=== PATIENT | male | born 1935 | race Caucasian/White ===

== ENCOUNTER → 2017-09-18 | Outpatient (CLI) | payer MEDICARE ==
[~2017-09-18] MED LIST: CIPRO 500MG TA500 MG PO; CLARITIN 1010 MG/TAB PO; GLUCOPHAGE500 MG/TAB PO; HYGROTON25 MG PO; LOPRESSOR 225 MG/TAB PO; MAGNESIUM500 MG PO; NORCO 325 MG-51 TAB PO; NORVASC 5MG5 MG/TAB PO; PYRIDIUM 100MG100 MG PO; VITAMIN D 1001000 IU PO; VITAMIN D5000 IU PO; ZESTRIL 20MG TA20 MG PO; ZYLOPRIM 100MG100 MG PO
== END ==
LOC: COL.RAD 08-19 10:30
DX: N27.1 Small kidney, bilateral (principal); N28.89 Other specified disorders of kidney and ureter; Z85.51 Personal history of malignant neoplasm of bladder; Z96.0 Presence of urogenital implants

== ENCOUNTER 2022-11-23 07:45 | Emergency (ER) | payer MEDICARE ==
[~2022-11-23] VITALS: Ht 177.8 cm; Wt 79.5 kg
[2022-11-23 08:01] VITALS: TEMP 98.4
[2022-11-23 08:35] LABS: BASO % 0.2 % (0.0-2.0); EOS # 0.1 K/mm3 (0.0-0.7); EOS % 0.8 % (0.0-4.0); GRAN % 77.3 % (42.2-75.2); HEMATOCRIT 43.7 % (42.0-52.0); HEMOGLOBIN 14.6 g/dl (13.5-18.0); LYMPH # 1.4 K/mm3 (1.2-3.4); LYMPH % 12.3 % (20.0-51.0); MEAN CELL VOLUME 91 fl (80.0-100.0); MEAN CORPUSCULAR HEMOGLOBIN 30 pg (27-31); MEAN CORPUSCULAR HGB CONC 33 g/dl (33.0-37.0); MEAN PLATELET VOLUME 10.7 fl (7.4-10.4); MONO % 8.9 % (1.7-9.3); PLATELET COUNT 143 K/mm3 (130-400); RED BLOOD COUNT 4.82 M/mm3 (4.20-5.60); REDCELL DISTRIBUTION WIDTH-CV 12.5 % (11.5-14.5)
[2022-11-23 08:54] LABS: ALBUMIN 3.3 gm/dL (3.4-4.8); BILIRUBIN,TOTAL 0.7 mg/dL (0.2-1.2); CALCIUM 8.7 mg/dL (8.4-10.2); CREATININE, serum 6.41 mg/dL (0.72-1.25); TOTAL PROTEIN 6.7 gm/dL (6.2-8.1)
[2022-11-23 11:05] VITALS: BP 119/84; PULSE 102
== END 2022-11-23 11:05 | disposition home or self-care (01) ==
LOC: COL.ER 07:45
PROVIDERS: Personal Emergency Response Attendant
DX: U07.1 COVID-19 (principal); K59.00 Constipation, unspecified; R79.89 Other specified abnormal findings of blood chemistry

== ENCOUNTER 2024-01-29 22:44 | Inpatient (IN) | payer MEDICARE ==
[~2024-01-29] VITALS: Ht 177.8 cm; Wt 84.8 kg
[2024-01-29 10:59] VITALS: BP 148/88; PULSE 108; TEMP 98.1
--- NOTE | 2024-01-29 10:59 | NUR ---
PATIENT ADMITTED TO ROOM 355 BROUGHT IN BY [facility]. TELE PLACED AND 2L O2 NC CONTINUED. PATIENT AXO X4, INDEPENDENT AND DENIES CHEST PAIN. BEDSIDE TO STAY NIGHT. VS ARE WNL WITH THE EXCEPTION OF SINUS TACHY 110 BPM. ASSESSMENT, INTAKE AND MED REC COMPLETE. PATIENT ORIENTED TO ROOM. GIVEN SANDWHICH BOX. DENIES ANY FURTHER NEEDS. CALL LIGHT WITHIN REACH.
[2024-01-29 21:00] VITALS: BP_SYST 148
[2024-01-29] MEDS ORDERED: LASIX 40MG TABL40 MG PO (23:21)
[2024-01-29] MEDS ORDERED: TAGAMET200 MG PO (23:23)
[2024-01-29] MEDS ORDERED: FLOMAX 0.40.4 MG/CAP PO (23:24)
[2024-01-29] MEDS ORDERED: LIPITOR 10MG10 MG PO (23:25)
[2024-01-29] MEDS ORDERED: OPTIVE SENSITI0.4 ML OP (23:26)
[2024-01-29 23:29] VITALS: BP 148/88; PULSE 108; TEMP 98.1
[2024-01-30] VITALS (11 sets, daily range): BP systolic 106–148; BP diastolic 66–84; PULSE 95–112; TEMP 97.5–98.2
[2024-01-30] MEDS ORDERED: Albuterol/Ipratropium 3 MG-0.5 MG/3 ML Neb Soln IH PRN (01:00)
[2024-01-30] MEDS ORDERED: Ondansetron 4 MG/2 ML VIAL IV PRN (01:00)
[2024-01-30] MEDS ORDERED: Furosemide 40 MG/4 ML VIAL IV SCH (01:00)
[2024-01-30 01:23] LABS: BASO % 0.2 % (0.0-2.0); EOS % 0.1 % (0.0-4.0); GRAN # 9.4 K/mm3 (1.4-6.5); GRAN % 80.4 % (42.2-75.2); HEMATOCRIT 43.1 % (42.0-52.0); HEMOGLOBIN 13.6 g/dl (13.5-18.0); LYMPH # 1.1 K/mm3 (1.2-3.4); LYMPH % 9.3 % (20.0-51.0); MEAN CELL VOLUME 94 fl (80.0-100.0); MEAN CORPUSCULAR HEMOGLOBIN 30 pg (27-31); MEAN CORPUSCULAR HGB CONC 32 g/dl (33.0-37.0); MEAN PLATELET VOLUME 10.5 fl (7.4-10.4); MONO # 1.1 K/mm3 (0.1-0.6); MONO % 9.2 % (1.7-9.3); PLATELET COUNT 267 K/mm3 (130-400); REDCELL DISTRIBUTION WIDTH-CV 13.6 % (11.5-14.5)
[2024-01-30 01:40] LABS: ALBUMIN 3.1 g/dL (3.4-4.8); BILIRUBIN,TOTAL 0.6 mg/dL (0.2-1.2); CALCIUM 9.5 mg/dL (8.4-10.2); CREATININE, serum 6.02 mg/dL (0.72-1.25); MAGNESIUM 2.1 mg/dL (1.6-2.6); POTASSIUM 4.8 mEq/L (3.5-4.5); TOTAL PROTEIN 6.6 g/dl (6.2-8.1)
[2024-01-30 05:09] LABS: URINE APPEARANCE CLEAR (CLEAR/HAZY); URINE BLOOD NEGATIVE (NEGATIVE); URINE COLOR YELLOW (YELLOW); URINE GLUCOSE 1+ (NEGATIVE); URINE KETONE NEGATIVE (NEGATIVE); URINE NITRATE NEGATIVE (NEGATIVE); URINE PROTEIN(semi-quant) 1+ (NEGATIVE)
[2024-01-30 06:36] LABS: COLLECTION METHOD CLEAN CATCH
[2024-01-30] MEDS ORDERED: Heparin 5,000 UNITS/ML 1 ML VIAL SQ SCH (08:00)
--- NOTE | 2024-01-30 08:39 | NUR ---
SW met with patient to complete intake. Patient provides he lives in [facility] with spouse Miladis Bird [phone]. Patient provides he is independent with ADL's, does not utilize DME, and does not utilize home health services at this time. PCP is Dr. Love, and pharmacy is [facility]. Patient provides that his DPOA/HC is spouse. Patient plans to return back to his home upon discharge. SW will continue to follow. Discharge plan: home with spouse
[2024-01-30] MEDS ORDERED: Sennosides/Docusate 8.6-50 MG TAB PO SCH (09:00)
[2024-01-30] MEDS ORDERED: Metoprolol Tartrate 25 MG TAB PO SCH (09:00)
[2024-01-30] MEDS ORDERED: Loratadine 10 MG TAB PO SCH (09:00)
[2024-01-30] MEDS ORDERED: Polyethylene Glycol 3350 17 GM PDS PO SCH (09:00)
[2024-01-30] MEDS ORDERED: Furosemide 100 MG/10 ML VIAL IV SCH (09:48)
[2024-01-30] MEDS ORDERED: Furosemide 100 MG in NS 100 ML IV SCH (10:30)
[2024-01-30] MEDS ORDERED: Furosemide 100 MG/10 ML VIAL IV ONE (10:30)
[2024-01-30] MEDS ORDERED: Furosemide 100 MG in NS 100 ML (AT SET RATE) IV SCH (10:45)
[2024-01-30] MEDS ORDERED: Acetaminophen 500 MG TAB PO PRN (16:45)
--- NOTE | 2024-01-30 19:11 | NUR ---
PATIENT RESTING SITTING UP IN BED WITH TV ON WITH FAMILY AT BEDSIDE WITH NO ACUTE DISTRESS NOTED. PATIENT ON 1 LITER OF OXYGEN VIA NC. LASIX DRIP INFUSING INTO LEFT FOREARM WITH NO COMPLICATIONS NOTED. TELEMETRY INTACT. PATIENT DENIES ANY NEEDS AT THIS TIME. PATIENT CARE ASSUMED FROM [facility]. BED IN LOW POSITION WITH WHEELS LOCKED WITH RAILS UP X2 AND CALL LIGHT WITHIN REACH.
[2024-01-30] MEDS ORDERED: Atorvastatin 10 MG TAB PO SCH (21:00)
--- NOTE | 2024-01-30 21:15 | NUR ---
PATIENT RESTING SITTING UP IN BED WITH TV ON WITH NO FAMILY PRESENT WITH NO ACUTE DISTRESS NOTED. PATIENT ON 1 LITER OF OXYGEN VIA NC. LASIX DRIP INFUSING INTO LEFT FOREARM WITH NO COMPLICATIONS NOTED. TELEMETRY INTACT. ASSESSMENT AND MEDICATION ADMINISTRATION COMPLETED AT THIS TIME. PATIENT TOLERATED WELL. PATIENT DENIES ANY NEEDS AT THIS TIME. BED IN LOW POSITION WITH WHEELS LOCKED WITH RAILS UP X2 AND CALL LIGHT WITHIN REACH.
[2024-01-31] VITALS (12 sets, daily range): BP systolic 112–159; BP diastolic 64–80; PULSE 79–99; TEMP 97.6–98.4
[2024-01-31 06:58] LABS: BASO % 0.3 % (0.0-2.0); EOS # 0.4 K/mm3 (0.0-0.7); EOS % 3.3 % (0.0-4.0); GRAN # 8.4 K/mm3 (1.4-6.5); GRAN % 75.2 % (42.2-75.2); HEMATOCRIT 43.1 % (42.0-52.0); HEMOGLOBIN 13.7 g/dl (13.5-18.0); LYMPH # 1.3 K/mm3 (1.2-3.4); LYMPH % 11.8 % (20.0-51.0); MEAN CELL VOLUME 95 fl (80.0-100.0); MEAN CORPUSCULAR HEMOGLOBIN 30 pg (27-31); MEAN CORPUSCULAR HGB CONC 32 g/dl (33.0-37.0); MEAN PLATELET VOLUME 10.5 fl (7.4-10.4); MONO % 8.6 % (1.7-9.3); PLATELET COUNT 270 K/mm3 (130-400); RED BLOOD COUNT 4.55 M/mm3 (4.20-5.60); REDCELL DISTRIBUTION WIDTH-CV 13.4 % (11.5-14.5)
--- NOTE | 2024-01-31 07:00 | NUR ---
PATINET ASLEEP, APPEARS TO BE RESTING COMFORTABLY IN BED. O2 ON AT 3LNC. PATIENT APPEARS TO BE IN NO ACUTE DISTRESS. CALL LIGHT WITHIN REACH. IV LASIX DRIP INFUSING ORDERED (SEE EMAR FOR DETAILS).
[2024-01-31 07:12] LABS: CALCIUM 9.6 mg/dL (8.4-10.2); CREATININE, serum 5.8 mg/dL (0.72-1.25); MAGNESIUM 2.1 mg/dL (1.6-2.6); POTASSIUM 5.4 mEq/L (3.5-4.5)
--- NOTE | 2024-01-31 11:00 | NUR ---
ROSIE DID WELL ON ROOM AIR, O2 SATURATION @ 92-93%. KEREN WAS ABLE TO WALK OUT INTO THE STEEL WITH THERAPY ON ROOM AIR, REQUIRED NO AD. PATIENT DENIES ANY CURRENT SOB. HE STATES HE FEELS ALOT BETTER THAN WHEN HE ARIVED.
--- NOTE | 2024-01-31 11:15 | NUR ---
PATIENT FOUND TO BE 89-90% ON ROOM AR DURING VITAL SIGN CHECKS. PATIENT PLACED BACK ON 1L AND IS NOW 97%ON 1LNC. PATIENT CALL LIGHT WITHIN REACH, HIS WIF EIS AT BEDSIDE.
--- NOTE | 2024-01-31 18:47 | NUR ---
PATIENT RESTING IN BED LYING ON RIGHT SIDE WITH TV OFF WITH NO FAMILY PRESENT WITH NO ACUTE DISTRESS NOTED. PATIENT ON ROOM AIR. LASIX DRIP INFUSING INTO LEFT FOREARM WITH NO COMPLICATIONS NOTED. PATIENT DENIES ANY NEEDS AT THIS TIME. PATIENT CARE ASSUMED FROM [facility]. BED IN LOW POSITION WITH WHEELS LOCKED WITH RAILS UP X3 AND CALL LIGHT WITHIN REACH.
--- NOTE | 2024-01-31 18:50 | NUR ---
PATIENT DENIES ANY NEEDS OR COMPLAINTS AT THIS TIME. CALL SHARONDA MCGHEE REACH. O2 @ 1LNC. PATIENTS IV LASIX DRIP INFUSING ORDERED.
--- NOTE | 2024-01-31 21:00 | NUR ---
PATIENT RESTING IN BED WITH EYES CLOSED WITH TV OFF WITH NO FAMILY PRESENT WITH NO ACUTE DISTRESS NOTED. PATIENT ON ROOM AIR. LASIX DRIP INFUSING INTO LEFT FOREARM WITH NO COMPLICATIONS NOTED. ASSESSMENT AND MEDICATION ADMINISTRATION COMPLETED AT THIS TIME. PATIENT TOLERATED WELL. PATIENT DENIES ANY NEEDS AT THIS TIME. BED IN LOW POSITION WITH WHEELS LOCKED WITH RAILS UP X3 AND CALL LIGHT WITHIN REACH.
[2024-02-01] VITALS (9 sets, daily range): BP systolic 110–127; BP diastolic 70–78; PULSE 93–99; TEMP 98–98.3
[2024-02-01 07:08] LABS: BASO % 0.4 % (0.0-2.0); EOS # 1.7 K/mm3 (0.0-0.7); EOS % 15.8 % (0.0-4.0); GRAN # 6.9 K/mm3 (1.4-6.5); GRAN % 64.7 % (42.2-75.2); HEMOGLOBIN 14.3 g/dl (13.5-18.0); LYMPH # 1.3 K/mm3 (1.2-3.4); LYMPH % 11.7 % (20.0-51.0); MEAN CELL VOLUME 92 fl (80.0-100.0); MEAN CORPUSCULAR HEMOGLOBIN 30 pg (27-31); MEAN CORPUSCULAR HGB CONC 33 g/dl (33.0-37.0); MEAN PLATELET VOLUME 10.6 fl (7.4-10.4); MONO # 0.7 K/mm3 (0.1-0.6); MONO % 6.8 % (1.7-9.3); PLATELET COUNT 289 K/mm3 (130-400); RED BLOOD COUNT 4.78 M/mm3 (4.20-5.60); REDCELL DISTRIBUTION WIDTH-CV 13.3 % (11.5-14.5)
[2024-02-01 07:37] LABS: CALCIUM 9.4 mg/dL (8.4-10.2); CREATININE, serum 6.33 mg/dL (0.72-1.25); POTASSIUM 4.7 mEq/L (3.5-4.5)
--- NOTE | 2024-02-01 08:53 | NUR ---
Patient sitting un at the edge of the bed, alert and oriented x 4, VSS, states no SOA but getting 1.5 L O2 NC. Finishing his breakfast. Continue getting lasix gtt per orders. Denies any pain or discomfort. Assessment completed, meds given. No further needs at this time. Call light within reach.
[2024-02-01] MEDS ORDERED: PROAIR HFA0.09 MG/AC IH (11:20)
--- NOTE | 2024-02-01 16:04 | NUR ---
patient does not qualify for home oxygen, SPO2 >92% during walk.
[2024-02-01] MEDS ORDERED: LASIX 80MG TABL80 MG PO (17:54)
--- NOTE | 2024-02-01 19:13 | NUR ---
Patient was provided with discharge information, all questions answered. IV access and telemetry were discontinued. Pt taken by wheelchair to the Emergency entrance by DAT[employer] [facility]PER[facility].
[2024-02-02] MEDS ORDERED: Furosemide 80 MG TAB PO SCH (09:00)
== END 2024-02-01 19:15 | disposition home or self-care (01) | DRG 291 ==
LOC: MEDICAL 22:44
PROVIDERS: Physician Assistant; ADMIT Internal Medicine
DX: I13.2 Hypertensive heart and chronic kidney disease with heart failure and with stage 5 chronic kidney disease, or end stage renal disease (principal); J96.01 Acute respiratory failure with hypoxia; N18.5 Chronic kidney disease, stage 5; E78.5 Hyperlipidemia, unspecified; I50.9 Heart failure, unspecified; K21.9 Gastro-esophageal reflux disease without esophagitis; N40.0 Benign prostatic hyperplasia without lower urinary tract symptoms; M10.9 Gout, unspecified; Z85.51 Personal history of malignant neoplasm of bladder; Z87.891 Personal history of nicotine dependence; Z79.899 Other long term (current) drug therapy; Z91.010 Allergy to peanuts; Z23 Encounter for immunization
CPT/HCPCS: J1644; J1940; Q3014